=== PATIENT | female | born 1945 | race Caucasian/White ===

== ENCOUNTER 2018-12-02 12:23 | Observation (INO) ==
[2018-12-02 13:59] LABS: BASO# 0.04 X1000 (0.0-0.2); BASO% 0.8 % (0.0-0.8); EOS# 0.12 X1000 (0.0-0.7); EOS% 2.5 % (0.0-10.0); HEMATOCRIT 38.4 % (37.0-47.0); HEMOGLOBIN 12.8 g/dL (12.0-16.0); IMM GRAN# 0.01 X1000 (0.0-0.04); IMM GRAN% 0.2 % (0.0-0.5); LYMPH# 1.65 X1000 (1.2-3.4); LYMPH% 33.9 % (20.5-51.1); MCH 30.9 PG (27-31); MCHC 33.3 g/dL (33-37); MCV 92.8 FL (81-99); MONO# 0.32 X1000 (0.11-0.59); MONO% 6.6 % (1.7-9.3); MPV 10.9 FL (7.4-10.4); NEUT# 2.73 X1000 (1.4-6.5); PLT 215 X1000 (130-400); RBC 4.14 XMIL (4.2-5.4); RDW 12.9 % (11.5-14.5); WBC 4.87 X1000 (4.8-10.8)
[2018-12-02 14:19] LABS: ALBUMIN 4.4 g/dL (3.5-5.0); CALCIUM 9.2 mg/dL (8.8-10.2); CREATININE 3.7 mg/dL (0.5-0.9); POTASSIUM 4.1 mmol/L (3.5-5.1); TOTAL BILIRUBIN 0.9 mg/dL (0.20-1.00); TOTAL PROTEIN 7.7 g/dL (6.3-8.3)
[2018-12-02 14:32] LABS: INR 1.01; PROTIME 13.8 Seconds (11.0-16.0); PTT 25.1 Seconds (22.3-41.8)
--- NOTE | 2018-12-02 15:14 | Diag Imaging Result Doc PS360 ---
EXAM: CHEST-2 VIEWS - 12/02/2018 HISTORY: weakness/ams TECHNIQUE: Chest two views COMPARISON: 12/10/2017 FINDINGS: Heart size appears borderline enlarged and stable. There are a couple small granulomas from old granulomatous disease which are stable. There is a small artifact over the lateral mid right chest on the PA view, which is not identifiable on lateral view. The lungs otherwise appear clear. There is no pleural effusion or pneumothorax identified. There is an old mid thoracic vertebral body compression deformity noted similar to prior. There are postsurgical changes noted at the right shoulder. IMPRESSION: Stable borderline cardiomegaly. No evidence of acute disease. Electronically signed by Pee Stone 12/02/2018 3:12 PM
--- NOTE | 2018-12-02 15:19 | Diag Imaging Result Doc PS360 ---
EXAM: CT HEAD W/O CONTRAST - 12/02/2018 HISTORY: AMS TECHNIQUE: CT head without contrast COMPARISON: 10/09/2014 FINDINGS: There are minimal chronic microvascular ischemic changes. There is no evidence of recent infarct, although acute infarcts may not be immediately visible. There are atherosclerotic calcifications noted at the base the brain. There is no evidence of intracranial hemorrhage, mass effect, midline shift, or hydrocephalus. There is no evidence of skull fracture. IMPRESSION: No visible acute intracranial abnormality. No hemorrhage or mass effect. This exam was performed using automated exposure control, adjustment of mA or kV according to patient size, and/or use of iterative reconstruction technique. Electronically signed by Pee Stone 12/02/2018 3:17 PM
--- NOTE | 2018-12-02 15:27 | EKG Report ---
Test Performed on : 12/02/2018 1:03:03 PM Test Reason : weakness/ams Blood Pressure : / mmHG Vent. Rate : 107 BPM Atrial Rate : 107 BPM P-R Int : 166 ms QRS Dur : 074 ms QT Int : 344 ms P-R-T Axes : 056 -38 033 degrees QTc Int : 459 ms Sinus tachycardia. Left axis deviation Inferior infarct , age undetermined Anteroseptal infarct (cited on or before 10-DEC-2017) Abnormal ECG When compared with ECG of 10-DEC-2017 00:29, premature atrial complexes. are no longer present Questionable change in initial forces of Anteroseptal leads Unconfirmed Result
[2018-12-02] MEDS ORDERED: ULTRAM PO ONE (16:26)
--- NOTE | 2018-12-02 16:56 | PROVIDER DOCUMENTATION ---
This chart was entered by Kendra Valdes Scribe, acting as scribe for Madi Blackwell MD. HPI-General Adult - General Chief Complaint: Altered Mental Status Stated Complaint: ams Time Seen by Provider: 12/02/18 14:03 Source: patient, family Allergies/Adverse Reactions: Patient Allergies Allergy/AdvReac Type Severity Reaction Status Date / Time aspirin AdvReac Unknown Verified 12/02/18 13:15 D and C yellow no.10 AdvReac VOMITING Verified 12/02/18 13:15 [D & C no.10 (yellow)] Home Medications: Home Medication List Medication Instructions Recorded Confirmed Last Taken Type Amitriptyline [Elavil] 25 mg PO HS 09/28/14 07/27/15 09/28/14 History Clonazepam 0.5 mg PO HS 09/28/14 07/27/15 09/28/14 History Furosemide 40 mg PO DAILY 09/28/14 07/27/15 11/12/14 History Gabapentin 300 mg PO TID 09/28/14 07/27/15 11/12/14 History ROSUVAstatin [Crestor] 10 mg PO QHS 09/28/14 07/27/15 11/11/14 History Insulin NPL/Insulin Lispro 40 units SUBQ BID 10/09/14 07/27/15 11/11/14 History [Humalog Mix 75-25 Pen] Losartan/Hydrochlorothiazide 100 mg PO DAILY 11/12/14 07/27/15 11/12/14 History [Losartan-Hctz 100-25 mg Tab] Ondansetron [Zofran Odt] 4 mg PO Q4-6H PRN PRN #12 12/14/14 07/27/15 Unknown Rx tab.rapdis Amlodipine Besylate 10 mg PO DAILY 01/20/15 07/27/15 Unknown History Hydrocodone/APAP 10 mg/325 mg 1 tab PO TID 01/20/15 07/27/15 Unknown History [Weimar-10] Omeprazole 1 tab PO DAILY 01/20/15 07/27/15 Unknown History Ciprofloxacin HCl [Cipro] 500 mg PO BID #14 tablet 07/27/15 Unknown Rx Clonidine [Catapres] 0.1 mg PO BID PRN PRN #60 tablet 07/27/15 Unknown Rx Tizanidine [Zanaflex] 4 mg PO Q8HR PRN 07/27/15 07/27/15 Unknown History Cephalexin [Keflex] 500 mg PO TID #30 capsule 06/13/17 Unknown Rx Fluconazole [Diflucan] 150 mg PO DAILY #5 tablet 06/13/17 Unknown Rx Cephalexin [Keflex] 500 mg PO BID #14 cap 09/28/17 Unknown Rx Guaifenesin/Codeine [Robitussin-AC] 10 ml PO Q4H PRN PRN #6 oz 09/28/17 Unknown Rx Diphenoxylate/Atropine [Lomotil] 1 ea PO 4XDAY PRN PRN #20 tab 12/10/17 Unknown Rx Ondansetron [Zofran Odt] 8 mg PO Q8H PRN #20 tab.rapdis 12/10/17 Unknown Rx Hydrocodone/APAP 5 mg/325 mg 1 ea PO Q6H PRN PRN #10 tab 09/01/18 Unknown Rx [Weimar-5] Methocarbamol [Robaxin] 500 mg PO BID PRN #30 tab 09/01/18 Unknown Rx - History of Present Illness -Gen Adult Nature of Presenting Problems: 73 yof presents w/family to ed w/co body weakness, confusion. pt is aware of person and place but not time. pt is post op 2 months w/left arm shunt. pt will be getting new shunt to start dialysis. pt has hx of right shoulder fracture. Review of Systems - Adult - REVIEW OF SYSTEMS - ADULT Constitutional: reports: see HPI, other (body weakness). denies: chills, fever , fatique Eyes: reports: no symptoms reported Ears, Nose, Mouth & Throat: reports: no symptoms reported Cardiovascular: reports: no symptoms reported Respiratory: reports: no symptoms reported Gastrointestinal: reports: no symptoms reported Genitourinary: reports: no symptoms reported Musculoskeletal: reports: no symptoms reported Integumentary: reports: no symptoms reported Neurological: reports: see HPI, other (confusion). denies: dizziness/vertigo, headache/migraines, syncope, tremors Psychiatric: reports: no symptoms reported Endocrine: reports: no symptoms reported Hematologic/Lymphatic: reports: no symptoms reported Allergic/Immunologic: reports: no symptoms reported All Other Systems: Reviewed and Negative Past History - Adult - PAST MEDICAL HISTORY-ADULT Review of Records: reports: Old Records Reviewed, Nursing Assessment Review, Medications Reviewed, Social history reviewed & non-contributory. Major Childhood Illnesses: reports: denies history Cardiovascular: reports: CHF, HTN, hyperlipidemia Respiratory: reports: bronchitis, COPD Gastrointestinal: reports: GERD Obstetrical/Gynecological: reports: denies history Genitourinary: reports: kidney disease Musculoskeletal: reports: chronic pain Neurological: reports: headaches/migraines (remote history) Psychiatric: reports: anxiety, depression Endocrine/Immune: reports: Diabetes Other Conditions: reports: denies history - PRIOR SURGERIES/PROCEDURES Surgical/Procedure History: reports: BTL, other (rt shoulder skin cancer removed , shunt left arm) - IMMUNIZATION STATUS Childhood Immunizations: UTD Flu Vaccine: See Nurse Assessment - FAMILY HISTORY Family History: reviewed, not pertinent - SOCIAL HISTORY Smoking: other (former) Substance Use: none/never Physical Exam-General - PHYSICAL EXAM-ADULT Initial Vital Signs Reviewed: Yes - CONSTITUTIONAL General Appearance: appears well, alert, no apparent distress - EYES Eyes: PERRL/EOMI - HEAD, EARS, NOSE, MOUTH & THROAT HENMT: normocephalic/atraumatic, moist mucous membranes, normal ENT inspection - NECK Neck: non-tender, full range of motion, supple - RESPIRATORY Respiratory: chest non-tender, lungs clear, normal breath sounds - CARDIOVASCULAR Cardiovascular: no edema, no gallop, no JVD, no murmur, tachycardia. negative: regular rate, rhythm, diastolic murmur, systolic murmur - GASTROINTESTINAL (ABDOMEN) Abdominal Exam: normal bowel sounds, non tender, soft - LYMPHATIC Lymphatic: no adenopathy - MUSCULOSKELETAL Back Exam: normal inspection, no CVA tenderness, no vertebral tenderness Extremity: normal range of motion, non-tender, normal inspection - SKIN Integumentary: normal color, normal turgor, warm/dry - NEUROLOGIC Neurologic: mental health counselor II-XII nml as tested, grossly normal, no motor/sensory deficits - PSYCHIATRIC Psych/Mental Status: normal mood/affect, normal thought content, normal thought process, oriented x 3 Progress - PLAN OF CARE/RESULTS Progress/Plan/Lab Results: Vital Signs - 8 hr 12/02/18 13:09 12/02/18 13:16 Temperature 98.4 F Pulse Rate 107 H Respiratory Rate 13 Blood Pressure 167/78 O2 Sat by Pulse Oximetry 100 Laboratory Results - last 24 hr 12/02/18 12/02/18 12/02/18 13:07 13:30 13:30 WBC 4.87 RBC 4.14 L Hgb 12.8 Hct 38.4 MCV 92.8 MCH 30.9 MCHC 33.3 RDW Std Deviation 12.9 Plt Count 215 MPV 10.9 H Immature Gran % (Auto) 0.2 Neut % (Auto) 56.0 Lymph % (Auto) 33.9 Roberts % (Auto) 6.6 Eos % (Auto) 2.5 Baso % (Auto) 0.8 Immature Gran # (Auto) 0.01 Neut # (Auto) 2.73 Lymph # (Auto) 1.65 Roberts # (Auto) 0.32 Eos # (Auto) 0.12 Baso # (Auto) 0.04 Estimated GFR/1.73 m2 12 POC Glucose 168 H Troponin T 12/02/18 13:30 WBC RBC Hgb Hct MCV MCH MCHC RDW Std Deviation Plt Count MPV Immature Gran % (Auto) Neut % (Auto) Lymph % (Auto) Roberts % (Auto) Eos % (Auto) Baso % (Auto) Immature Gran # (Auto) Neut # (Auto) Lymph # (Auto) Roberts # (Auto) Eos # (Auto) Baso # (Auto) Estimated GFR/1.73 m2 POC Glucose Troponin T 0.021 Orders Category Date Time Status Cardiac Monitoring DIRECTED Care 12/02/18 13:46 Active Saline Loc NOW Care 12/02/18 13:46 Active CHEST-2 VIEWS [RAD] Stat Exams 12/02/18 13:46 Ordered CBC WITH ELECTRONIC DIFF [HEME] Stat Lab 12/02/18 13:30 Completed CK PROFILE [SP CHEM] Stat Lab 12/02/18 13:30 Results COMPREHENSIVE METABOLIC PANEL [CHEM] Stat Lab 12/02/18 13:30 Results PRO B-NATRIURETIC PEPTIDE Stat Lab 12/02/18 13:30 Received PROTIME WITH INR [COAG] Stat Lab 12/02/18 13:30 Received PTT [COAG] Stat Lab 12/02/18 13:30 Received TROPONIN T Stat Lab 12/02/18 13:30 Completed CP/SOB/Palp >45 yrs of Age Stat Oth 12/02/18 13:46 Ordered EKG [EKG] Stat Ther 12/02/18 13:46 Ordered Result Diagrams: 12/02/18 13:30 12/02/18 13:30 - EKG 1 Time of EKG reading by physician:: 12:19 EKG Read and Signed by:: Madi Blackwell EKG Interpretation (*Must complete 3 of following elements*): Abnormal (left axis deviation, inferior infract, age undetermined, anterospetal infract, age undetermined.) Rate: 107 Rhythm: ST RI Interval: normal ST Wave: normal Departure - Departure Date of Disposition Decision: 12/02/18 Time of Disposition Decision: 16:50 DIAGNOSIS: Altered mental status, Weak, CKD (chronic kidney disease) stage 4, GFR 15-29 ml /min Disposition: ADMITTED INPATIENT 09 Certified Medical Emergency: Emergent Condition: Stable Referrals and Follow-Ups: Wilfredo Cornejo MD [Primary Care Provider] - - Critical Care Note This patient required my direct & personal management of CC.: No Attestation - Physician/ MEG Attestation Patient care was provided by Advanced Practice Provider:: No The physician spent face to face time with patient:: Yes Advanced Practice Provider documentation review:: Supervising physician onsite and consulted in the evaluation and care of this patient. The physician did have a face to face encounter with the patient. This chart was documented by the indicated scribe, (Kendra Valdes, [place]) and accurately reflects the services I performed and decisions made by me, Madi Blackwell MD, as attested by the provider's signature.
[2018-12-02] MEDS ORDERED: NORCO-5 PO ONE (17:34)
[2018-12-02] MEDS ORDERED: ZOFRAN IV PRN ×2 (17:35→17:42)
[2018-12-02] MEDS ORDERED: NS 1,000 ML IV ONE (17:42)
[2018-12-02] MEDS ORDERED: MORPHINE IV ONE (17:42)
[2018-12-02] MEDS ORDERED: TYLENOL PO PRN (17:42)
[2018-12-02 18:28] LABS: URINE SOURCE CATH
[2018-12-02 18:45] LABS: BILIRUBIN URINE NEGATIVE (NEGATIVE); BLOOD URINE NEGATIVE (NEGATIVE); CLARITY CLEAR (CLEAR); COLOR YELLOW; GLUCOSE URINE NEGATIVE (NEGATIVE); KETONE URINE 1+(Small) mg/dL (NEGATIVE); LEUKOCYTES URINE NEGATIVE (NEGATIVE); NITRITE URINE NEGATIVE (NEGATIVE); PROTEIN URINE TRACE mg/dL (NEGATIVE); UROBILINOGEN URINE NORMAL
--- NOTE | 2018-12-02 18:56 | HISTORY AND PHYSICAL ---
CHIEF COMPLAINT: Left arm pain. HISTORY OF PRESENT ILLNESS: This is a 73-year-old female with a history of end-stage renal disease, insulin-dependent diabetic, hypertension, who presents to the emergency room complaining of increasing pain and decreased sensation to her left arm. She states that this started shortly after having an AV fistula placed. Now on talking to the family, they stated that she cried herself to sleep last night. The patient states that she passed out. She could tell me what time she passed out and what time she woke up this morning. The family member stated that she was weaker than normal, a little confused therefore she presented to the emergency room. The patient states that she has not voided all day and the son actually does not remember helping her all day and in fact, she does not remember when she voided yesterday. She denies any suprapubic tenderness. Bladder is not distended. PAST MEDICAL HISTORY: End-stage renal disease, being followed by Dr. Barrett, insulin-dependent diabetes mellitus, hypertension, depression, anxiety. PAST SURGICAL HISTORY: Hysterectomy, right shoulder, skin cancer removal, and AV graft left arm. SOCIAL HISTORY: She denies any alcohol, tobacco, or illicit drug use. She lives with her children who are very active in her care. ALLERGIES: Aspirin with unknown reaction, D and C #10 yellow causes vomiting. HOME MEDICATIONS: A list will be obtained by the nursing staff and once verified, will review and restart as appropriate. PHYSICAL EXAMINATION: GENERAL: This is a 73-year-old female who is lying flat on the stretcher in the ER in mild distress. VITAL SIGNS: Blood pressure is 150/70 with a heart rate of 100, respirations are 18, temperature is 98.4 degrees. Room air saturation 100%. HEENT: Head is normocephalic, atraumatic. Mucous membranes are moist. NECK: Supple with trachea midline. CARDIOVASCULAR: Regular rate and rhythm. S1 and S2 appreciated. She has no lower extremity edema with peripheral pulses palpable x4 extremities. PULMONARY: Breath sounds are clear with no increased work of breathing noted. Chest rises and falls symmetrically with respiration. GASTROINTESTINAL: Abdomen is soft, nontender, nondistended. Bowel sounds in all 4 quadrants. GENITOURINARY: She denies any suprapubic or CVAT. NEUROLOGIC: She is alert. She is oriented to family members, her name and birthday. She knows that she is at [facility]. She has difficulty telling the date. She does follow commands. Forehead is spared. She has no nasal flaring. No tongue or uvula deviation. She has equal shoulder shrug. She has no plantar drift. Sample Sawyer are 4/4 bilateral. Muscle strength is 3 to 4 x 4 extremities. LABORATORY DATA: WBC is 4.8 with a hemoglobin 12.8, hematocrit 38.4, platelets of 215,000. Sodium 142, potassium 4.1, BUN 69 with a creatinine 3.7, glucose of 162. CT of the head revealed no acute intracranial abnormality. No hemorrhage or mass effect. Chest x-ray revealed stable borderline cardiomegaly. No evidence of acute disease. EKG revealed sinus tachycardia, rate of 107. ASSESSMENT AND PLAN: 1. Left arm pain and decreased sensation. We will obtain a venous Doppler as she did have a shunt placed. Do neurovascular checks every 4 hours. We will consult General surgery to re- evaluate. 2. Altered mental status. Neuro checks q.4 hours for 24 hours. She has not urinated in about 24 hours, so there could be an infectious component. 3. End-stage renal disease. She is being followed by Dr. Barrett. We will consult him for medical management. 4. Insulin-dependent diabetes. She will be placed on patterned blood glucose with sliding scale insulin. Once she is eating, we can evaluate her home medications and long-acting insulins. 5. For pain, we will continue her Dowell 5 as well as her Neurontin. Further treatments pending hospital course. Dictated by ROSHNI Mauro for Wilfredo Cornejo MD This chart was documented by, ROSHNI Mauro and accurately reflects the services performed, treatment plan and medical decisions as attested by the providers signature Wilfredo Cornejo MD. cc: ROSHNI Mauro MD
[2018-12-02 19:10] LABS: URINE BACTERIA 1+ /HFP; URINE CAST NONE SEEN /LPF; URINE CRYSTAL NONE SEEN /HPF; URINE EPITHELIAL CELLS <10 /HPF (<10); URINE RBC <10 /HPF (<10); URINE WBC <10 /HPF (<10); URINE YEAST NONE SEEN /HPF
[2018-12-02] MEDS: HUMALOG SUBQ SCH (21:24)
[2018-12-02] MEDS: ROBAXIN PO SCH (21:26)
[2018-12-02] MEDS ORDERED: MORPHINE IV PRN (21:52)
[2018-12-02] MEDS: NORCO-7.5 PO PRN (22:51)
--- NOTE | 2018-12-03 06:24 | NEPHROLOGY CONSULTATION ---
DATE: 12/03/2018 REASON FOR CONSULTATION: Left hand steal syndrome. HISTORY OF PRESENT ILLNESS: Ms Lemus is a 73-year-old white female with advanced stage 5 chronic kidney disease. She had a left forearm AV loop graft created by Dr. Mathis within the last 2 weeks in anticipation of requiring hemodialysis. She was seen in our office earlier in the week because of severe pain in the left arm. She also had multiple uremic symptoms. Our plan was for her to go to [facility] and have an arteriogram as well as placement of a tunneled dialysis catheter in order to initiate dialysis, if that was necessary. She came to the hospital because of intractable pain, limited range of motion. No chills or fevers. No other new symptoms. PAST MEDICAL HISTORY: As above. She also has diabetes, hypertension. HOME MEDICATIONS: Include. Rosuvastatin, furosemide, losartan, hydrochlorothiazide, amlodipine, Lomotil, ondansetron, hydrocodone, gabapentin, insulin, meloxicam, Promethazine, ergocalciferol, pantoprazole, methocarbamol. ALLERGIES: Aspirin. SOCIAL HISTORY: No alcohol or tobacco. She lives with her daughter. FAMILY HISTORY: Otherwise noncontributory. REVIEW OF SYSTEMS: Otherwise noncontributory. PHYSICAL EXAM: Limited to the upper extremity. Vital signs: Blood pressure 126/71, heart rate 95, respirations 14, afebrile. General: No acute distress. Skin: Warm and dry. Neck: Neck veins are not distended. Trachea is midline. Extremity: Left upper extremity has an AV loop graft in the left forearm. Positive thrill and bruit. The graft itself is nontender. There is a small eschar at the counter incision on the distal into the graft. The left hand has marked pallor and decreased range of motion. Passive range of motion results in some pain with flexion. Radial pulses not palpable on the left. Palpable on the right. Capillary refill is normal on the right and undetectable on the left. 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 Her pain control is better having received morphine. I will allow her to have further doses through the night, but the best evaluation of this graft will be performed at [facility] in [place]. As such, if she has adequate pain control in the morning she is to be discharged, and we will make arrangements for her to be seen in [facility]. If she does require additional dialysis access in order to initiate treatment then we will have them take care of this problem as well. cc: Simone Barrett MD
[2018-12-03] MEDS: HUMALOG SUBQ SCH ×2 (06:28→12:10)
[2018-12-03] MEDS: NORCO-7.5 PO PRN ×2 (06:47→13:11)
[2018-12-03 06:50] LABS: BASO# 0.04 X1000 (0.0-0.2); BASO% 0.8 % (0.0-0.8); EOS# 0.23 X1000 (0.0-0.7); EOS% 4.7 % (0.0-10.0); HEMATOCRIT 36.3 % (37.0-47.0); HEMOGLOBIN 11.6 g/dL (12.0-16.0); LYMPH# 1.94 X1000 (1.2-3.4); LYMPH% 39.8 % (20.5-51.1); MCH 30.4 PG (27-31); MONO# 0.53 X1000 (0.11-0.59); MONO% 10.9 % (1.7-9.3); NEUT# 2.13 X1000 (1.4-6.5); NEUT% 43.8 % (42.2-75.2); PLT 186 X1000 (130-400); RBC 3.82 XMIL (4.2-5.4); RDW 12.9 % (11.5-14.5); WBC 4.87 X1000 (4.8-10.8)
[2018-12-03] MEDS ORDERED: PRILOSEC PO SCH (07:00)
[2018-12-03 07:13] LABS: ALB/GLOB RATIO 1.2; ALBUMIN 3.8 g/dL (3.5-5.0); CREATININE 4.4 mg/dL (0.5-0.9); MAGNESIUM 1.7 mg/dL (1.5-2.7); POTASSIUM 4.2 mmol/L (3.5-5.1); TOTAL BILIRUBIN 0.53 mg/dL (0.20-1.00); TOTAL PROTEIN 6.9 g/dL (6.3-8.3)
[2018-12-03] MEDS: ROBAXIN PO SCH (09:36)
[2018-12-03 11:27] VITALS: BP 136/50
--- NOTE | 2018-12-03 15:01 | GENERAL SURGERY CONSULTATION ---
DATE: 12/03/2018 HISTORY OF PRESENT ILLNESS: Ms. Lemus is a 73-year-old who came to the emergency department yesterday with somewhat of an altered mental status. She complains of body weakness and confusion, not oriented to place or time. She complains of left hand pain. She is 2 months after placement of a left forearm AV graft by Dr. Mathis in [place]. She is scheduled Friday to go to [place] for a tunnel catheter and some type of ligation or revision of her left forearm graft. PAST MEDICAL HISTORY: Pertinent for insulin-dependent diabetes, hypertension, depression, anxiety, CKD 5. He has had previous shoulder surgery, hysterectomy, skin cancer removal, and the forearm AV graft. MEDICATIONS: Listed. She apparently cannot take aspirin. SOCIAL HISTORY: She denies alcohol, tobacco or drug use. She has an attentive son at her bedside. REVIEW OF SYSTEMS: As noted above. PHYSICAL EXAMINATION: Vital signs: Afebrile, heart rate 80, respiratory rate 16, blood pressure 136/50. Lungs: Bilateral breath sounds. Heart: Regular rate and rhythm. Extremities: Forearm shunt is noted on the left. There is flow within the forearm graft. She does have a faintly palpable radial pulse. Her hand is viable. LABORATORY DATA: Hemoglobin 11.6, white count 4800, BUN 82, creatinine 4.4. ASSESSMENT: Functional graft but apparently there is plan to revise it or switch to another access in [place] on Friday. I have no new recommendations. cc: Madi Park MD
--- NOTE | 2018-12-03 15:33 | NEPHROLOGY PROGRESS NOTE ---
DATE: 12/03/2018 TIME SEEN: 0705 SUBJECTIVE: Ms. Lemus is resting quietly in bed. Head of the bed is elevated. She is awake and alert today. She has complaints of left arm pain and left hand pain. VITAL SIGNS: Temperature 98.2 degrees, blood pressure 126/71, heart rate 95, respirations 14. She is on room air. Last recorded saturation is 97%. She has had 500 in. She has had 1050 out to Centeno catheter. LABORATORY DATA: Sodium 142, potassium 4.2, chloride 96, CO2 33, BUN 82, creatinine 4.4, glucose 179. The patient has an anion gap of 13. Calcium is 9, albumin of 3.8. White count 4.87, hemoglobin 11.6, hematocrit 36.3 with a platelet count of 186,000. Urinalysis is negative for growth. PHYSICAL EXAMINATION: General: This is a 73-year-old white female resting quietly in bed. She appears in moderate distress secondary to pain to her left forearm. Her skin is warm and dry. HEENT: Normocephalic, atraumatic. Conjunctivae pale. She has SRI. Mucous membranes are dry. Neck: Supple. Trachea midline. No JVD. Cardiovascular: She is regular rate and rhythm. She has an S4 present. Lungs: Clear to auscultation anteriorly. Equal excursion on room air. Abdomen: Slightly distended, large, round, soft, nontender. Positive bowel sounds. Genitourinary: Centeno catheter is in place. Extremities: She has no lower extremity edema. She has an AV loop graft to the left forearm. Her hand is dusky. She has marked pallor with decreased range of motion. Passive range of motion results in pain with flexion at the elbow. Radial pulse remains distant, nonpalpable. Pulse is palpable on the right. Capillary refill normal on the right, undetectable on the left. ASSESSMENT AND PLAN: Chronic kidney disease stage 5D. The patient has an arteriovenous loop graft to the left forearm. She has had significant pain since this has been placed. We have attempted to get the patient to [facility] for placement of hemodialysis tunnel catheter with evaluation of this loop graft and her significant steal syndrome pain. Unfortunately, the patient was seen in our office on Friday due to her insurance. We have contacted her primary care. They have sent the referral to [facility] in [place]. We have a confirmed appointment on Friday. We will fax this to the nurses station to give to the patient for discharge. The patient is currently on [place]. Her pain seems to be controlled adequately. From our perspective, the patient is ready for discharge to go to [facility] in [place] on Friday for workup on her tunnel dialysis catheter and evaluation of her left arteriovascular graft on the left. At that time, once placed, we will plan to start the patient on hemodialysis next week. I would like to thank you for allowing us to follow with this patient. Dictated by ROSHNI Viveros for Simone Barrett MD Face to face encounter, data reviewed, discussed with Cheko Camacho on 12/03/18. I agree with the above assessment and plan of care. cc: ROSHNI Viveros MD [facility]
--- NOTE | 2018-12-04 07:12 | DISCHARGE SUMMARY ---
ADMISSION DATE: 12/02/2018 DISCHARGE DATE: 12/03/2018 DISCHARGE DIAGNOSES: 1. 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 2. Altered mental status, resolved. 3. End-stage renal disease on hemodialysis. 4. Type 2 diabetes. CONSULTATIONS: Surgery Department Dr. Park. NEPHROLOGY DEPARTMENT: Dr. Barrett. HOSPITAL COURSE: A 73-year-old female with a past medical history of end-stage renal disease, insulin-dependent diabetes, and hypertension who presented to the emergency department at [facility] with increasing pain and decreased sensation to the left arm. Per the patient, this problem started shortly after having an AV fistula placed. She described the pain as severe. Apparently, she has been weaker than normal, and a little bit confused so they decided to come to the emergency department. Nephrology Department evaluated the patient, and since this patient has left hand steal syndrome secondary to the AV loop graft we have decided to control her pain. The best evaluation for this graft will be performed at [facility] in [place]. The patient [*]with pain medication, and today she was feeling a little bit better. Nephrology Department already set up an appointment for this patient [place], [place]. She has an appointment next Friday at 11:30 in the morning. We received some informational fax from that place, and we gave it to the patient. They seem to understand. Her son was at the bedside, and all of the situation was explained to him as well. The patient also has been evaluated by Surgery Department, but since this problem will be hopefully fixed by [facility] in [place], they have decided to just keep an eye on the patient. This patient will be discharged home today with pain medication. PHYSICAL EXAMINATION: Vital Signs: Temperature 98 degrees, pulse 80, respiratory rate 16, blood pressure 136/50 and oxygen saturation 95% on room air. HEENT: Head normocephalic. No trauma. PERRLA. Neck: Supple. No JVD. No masses. Central trachea. Chest: Clear to auscultation. No wheezing. No rales. Abdomen: Soft, nontender, and nondistended. No hepatosplenomegaly. Extremities: No edema. Her left arm is a little bit cold, and is sensitive to palpation. She is able to move her hand but is painful. Neurological: Today, this patient is alert and oriented x3. No focal deficits, but some weakness on the left hand probably due to pain. LABORATORY: WBC 4.8, hemoglobin 11.6, hematocrit 36.3, and platelets 186,000. Sodium 142, potassium 4.2, chloride 96, bicarbonate 33, BUN 82, creatinine 4.4, glucose 179 and calcium 9. Magnesium 1.7. DISCHARGE MEDICATIONS: The patient basically will be taking her home medications which are furosemide 40 mg p.o. b.i.d., gabapentin 300 mg p.o. b.i.d., Phenergan 1 tablet p.o. q.4 hours as needed, insulin 75/25 70 units subcu b.i.d., pantoprazole 1 tablet p.o. daily, ezetimibe 10 mg p.o. daily, Losartan/hydrochlorothiazide 100/25 mg p.o. daily, meloxicam 1 tablet p.o. daily, vitamin D2 1 capsule p.o. q.7 days, Crestor 10 mg p.o. at bedtime, Robaxin 500 mg p.o. b.i.d., ondansetron 8 mg p.o. q.8 hours as needed, Lomotil one tablet p.o. 4 times a day as needed, amlodipine 10 mg p.o. daily, and Kathleen 7.5 1 tablet p.o. every 6 hours as needed for pain. TIME SPENT: Time discharging this patient 35 minutes. cc: Taran Traore MD
== END 2018-12-03 13:44 | disposition home or self-care (01) ==
LOC: 4N 12:23 → EDBD 12:23 → EDUNIT# 12:23 → P.ED 12:23
PROVIDERS: ATTEND Internal Medicine
CPT/HCPCS: 51702; 70450; 71020; 71046; 80053; 81001; 82550; 82948; 83735; 83880; 84484; 85025; 85610; 85730; 87088; 93005; 93971; 93990; 96361; 96374; 96375; 99285; A9270; J1815; J2270; J2405; J7030; XXXXX

== ENCOUNTER 2019-05-26 19:51 | Inpatient (IN) ==
[2019-05-26 22:19] LABS: BILIRUBIN URINE NEGATIVE (NEGATIVE); BLOOD URINE NEGATIVE (NEGATIVE); CLARITY CLEAR (CLEAR); COLOR YELLOW; GLUCOSE URINE NEGATIVE (NEGATIVE); KETONE URINE NEGATIVE (NEGATIVE); LEUKOCYTES URINE 1+ (NEGATIVE); NITRITE URINE NEGATIVE (NEGATIVE); PROTEIN URINE 1+(30 mg/dL) mg/dL (NEGATIVE); SP GRAVITY URINE 1.015; UROBILINOGEN URINE NORMAL
[2019-05-26 22:29] LABS: URINE EPITHELIAL CELLS <10 /HPF (<10); URINE RBC <10 /HPF (<10); URINE WBC <10 /HPF (<10)
[2019-05-26 22:30] LABS: URINE CAST NONE SEEN /LPF; URINE CRYSTAL NONE SEEN /HPF; URINE SOURCE CLEAN CATCH; URINE YEAST NONE SEEN /HPF
[2019-05-26 22:38] LABS: BASO# 0.02 X1000 (0.0-0.2); BASO% 0.4 % (0.0-0.8); EOS# 0.02 X1000 (0.0-0.7); EOS% 0.4 % (0.0-10.0); HEMOGLOBIN 12.1 g/dL (12.0-16.0); IMM GRAN# 0.02 X1000 (0.0-0.04); IMM GRAN% 0.4 % (0.0-0.5); LYMPH# 1.05 X1000 (1.2-3.4); LYMPH% 19.4 % (20.5-51.1); MCH 31.8 PG (27-31); MCHC 33.6 g/dL (33-37); MCV 94.7 FL (81-99); MONO# 0.62 X1000 (0.11-0.59); MONO% 11.5 % (1.7-9.3); MPV 13.2 FL (7.4-10.4); NEUT# 3.67 X1000 (1.4-6.5); NEUT% 67.9 % (42.2-75.2); PLT 84 X1000 (130-400)
[2019-05-26 22:57] LABS: CALCIUM 8.3 mg/dL (8.8-10.2); CREATININE 4.5 mg/dL (0.5-0.9); POTASSIUM 3.9 mmol/L (3.5-5.1); TOTAL BILIRUBIN 0.6 mg/dL (0.20-1.00)
[2019-05-26 22:58] LABS: TOTAL PROTEIN 7.1 g/dL (6.3-8.3)
[2019-05-27] MEDS ORDERED: NS 250 ML IV ONE (03:54)
--- NOTE | 2019-05-27 06:46 | PROVIDER DOCUMENTATION ---
This chart was entered by Drake Claire Scribe, acting as scribe for Ray Young MD. HPI-Abdominal Pain/GI Problem - General Chief Complaint: N/V/D Stated Complaint: N/V/D Time Seen by Provider: 05/26/19 22:00 Source: patient Allergies/Adverse Reactions: Patient Allergies Allergy/AdvReac Type Severity Reaction Status Date / Time aspirin AdvReac Unknown Verified 12/29/18 08:17 D and C yellow no.10 AdvReac VOMITING Verified 12/29/18 08:17 [D & C no.10 (yellow)] Home Medications: Home Medication List Medication Instructions Recorded Confirmed Last Taken Type Furosemide 40 mg PO BID 09/28/14 12/29/18 11/12/14 History ROSUVAstatin [Crestor] 10 mg PO QHS 09/28/14 12/29/18 11/11/14 History Losartan/Hydrochlorothiazide 1 tab PO DAILY 11/12/14 12/29/18 11/12/14 History [Losartan-Hctz 100-25 mg Tab] Amlodipine Besylate 10 mg PO DAILY 01/20/15 12/29/18 Unknown History Diphenoxylate/Atropine [Lomotil] 1 ea PO 4XDAY PRN PRN #20 tab 12/10/17 12/29/18 Unknown Rx Ondansetron [Zofran Odt] 8 mg PO Q8H PRN #20 tab.rapdis 12/10/17 12/29/18 Unknown Rx Ergocalciferol (Vitamin D2) 1 cap PO Q7D 12/02/18 12/29/18 Unknown History [Vitamin D2] Gabapentin 300 mg PO BID 12/02/18 12/29/18 Unknown History Insulin Humalog 75/25 [Humalog Mix 70 unit SQ BID 12/02/18 12/29/18 Unknown History 75/25] Meloxicam [Mobic] 1 tab PO DAILY 12/02/18 12/29/18 Unknown History Methocarbamol [Robaxin] 500 mg PO BID 12/02/18 12/29/18 Unknown History Pantoprazole [Protonix] 1 tab PO DAILY 12/02/18 12/29/18 Unknown History Promethazine [Phenergan] 1 tab PO Q4H PRN 12/02/18 12/29/18 Unknown History Hydrocodone/APAP 7.5 mg/325 mg 1 ea PO Q6H PRN PRN #30 tab 12/03/18 12/29/18 Unknown Rx [Stuart-7.5] - History of Present Illness-ABD Nature of Presenting Problems: Pt is a 74 yof who presents to the ED with a CC of N/V/D. Pt states she has been vomiting for 2x days and also complains of cramping, nausea, and diarrhea. Pt reports a hx of renal failure and states she is on dialysis. Pt states she missed her dialysis appointment today because she felt sick. Pt reports a total of 9 vomiting episodes in the past two days. Pt reports a hx of diabetes. Abdominal Pain Onset Location: reports: generalized abdomen Pain Radiation: reports: no radiation Quality of Pain: reports: burning, cramping Severity in ED: reports: mild Onset/Duration: reports: 2 days ago Timing: reports: still present Exposure to sick contacts?: No Associated Symptoms: reports: diarrhea, nausea, vomiting Last BM: this evening # of Vomiting Episodes: 9 Bruising or Bleeding Gums?: No Similar Symptoms Previously?: No Recently seen or treated by another doctor?: No Review of Systems - Adult - REVIEW OF SYSTEMS - ADULT Constitutional: reports: see HPI Eyes: reports: no symptoms reported Ears, Nose, Mouth & Throat: reports: no symptoms reported Cardiovascular: reports: no symptoms reported Respiratory: reports: no symptoms reported Gastrointestinal: reports: see HPI, abdominal pain, diarrhea, nausea, vomiting Genitourinary: reports: no symptoms reported Musculoskeletal: reports: no symptoms reported Integumentary: reports: no symptoms reported Neurological: reports: no symptoms reported Psychiatric: reports: no symptoms reported Endocrine: reports: no symptoms reported Hematologic/Lymphatic: reports: no symptoms reported Allergic/Immunologic: reports: no symptoms reported All Other Systems: Reviewed and Negative Past History - Adult - PAST MEDICAL HISTORY-ADULT Review of Records: reports: Old Records Reviewed, Nursing Assessment Review, Medications Reviewed, Social history reviewed & non-contributory. Major Childhood Illnesses: reports: denies history Cardiovascular: reports: CHF, HTN, hyperlipidemia Respiratory: reports: bronchitis, COPD Gastrointestinal: reports: GERD Obstetrical/Gynecological: reports: denies history Genitourinary: reports: kidney disease Musculoskeletal: reports: chronic pain Neurological: reports: headaches/migraines (remote history) Psychiatric: reports: anxiety, depression Endocrine/Immune: reports: Diabetes Other Conditions: reports: denies history - PRIOR SURGERIES/PROCEDURES Surgical/Procedure History: reports: BTL, other (rt shoulder skin cancer removed, shunt left arm) - IMMUNIZATION STATUS Childhood Immunizations: UTD Flu Vaccine: See Nurse Assessment - FAMILY HISTORY Family History: reviewed, not pertinent - SOCIAL HISTORY Smoking: denies, non-smoker Substance Use: none/never, denies Alcohol Use Frequency: never Physical Exam-General - PHYSICAL EXAM-ADULT Initial Vital Signs Reviewed: Yes - CONSTITUTIONAL General Appearance: alert, mild distress - EYES Eyes: PERRL/EOMI, pink conjunctivae - NECK Neck: non-tender, full range of motion - RESPIRATORY Respiratory: chest non-tender, lungs clear, normal breath sounds, no pleuratic chest pain, no respiratory distress, no accessory muscle use - CARDIOVASCULAR Cardiovascular: normal peripheral pulses, regular rate, rhythm, no edema, no gallop, no JVD - GASTROINTESTINAL (ABDOMEN) Abdominal Exam: soft, tenderness (Mildly) - MUSCULOSKELETAL Extremity: normal range of motion, non-tender - SKIN Integumentary: normal color, warm/dry - NEUROLOGIC Neurologic: grossly normal, no motor/sensory deficits - PSYCHIATRIC Psych/Mental Status: normal mood/affect, normal thought content, normal thought process, oriented x 3 Progress - PLAN OF CARE/RESULTS Progress/Plan/Lab Results: Vital Signs - 8 hr 05/26/19 19:54 Temperature 99.0 F Pulse Rate 126 H Respiratory Rate 18 Blood Pressure 110/56 O2 Sat by Pulse Oximetry 93 L Laboratory Results - last 24 hr 05/26/19 05/26/19 20:03 22:09 POC Glucose 96 Urine Color YELLOW Urine Clarity CLEAR Urine pH 5.0 Ur Specific [place] 1.015 Urine Protein 1+(30 mg/dL) A Urine Ketones NEGATIVE Urine Blood NEGATIVE Urine Nitrite NEGATIVE Urine Bilirubin NEGATIVE Urine Urobilinogen NORMAL Urine WBC 1+ A Urine Glucose NEGATIVE Orders Category Date Time Status C DIFF TOXIN PL Stat Lab 05/26/19 22:01 Uncollected CBC WITH DIFF [HEME] Stat Lab 05/26/19 22:01 Ordered CK PROFILE [SP CHEM] Stat Lab 05/26/19 22:01 Ordered COMPREHENSIVE METABOLIC PANEL [CHEM] Stat Lab 05/26/19 22:02 Ordered OCCULT BLOOD DIAG 1-[address] Stat Lab 05/26/19 22:01 Uncollected ua [URINALYSIS PL W/POSS RFLX CULT] [URINALYSIS] Stat Lab 05/26/19 22:09 Results Result Diagrams: 05/26/19 22:30 05/26/19 22:30 Departure - Departure Date of Disposition Decision: 05/26/19 Time of Disposition Decision: 06:45 DIAGNOSIS: Gastroenteritis, CKD (chronic kidney disease) stage 4, GFR 15-29 ml/min Disposition: ADMITTED INPATIENT 09 Certified Medical Emergency: Emergent Condition: Fair Additional Freetext Instructions: ED Follow Up Instructions: You have been treated by a care provider in the Emergency Department. These instructions are being provided to you so you can have an understanding of how to care for yourself upon discharge. Upon discharge from the Emergency Department, you are responsible for making arrangements for follow-up care by a physician of your choice. Take all prescribed medications as directed. Return to the Emergency Department immediately for any new or worsening symptoms. You may call the Physician Referral phone number at [phone] to obtain a list of Physicians who are taking new patients. Referrals and Follow-Ups: Wilferdo Cornejo MD [Primary Care Provider] - - Critical Care Note This patient required my direct & personal management of CC.: No Attestation - Physician/ MEG Attestation Patient care was provided by Advanced Practice Provider:: No The physician spent face to face time with patient:: Yes Advanced Practice Provider documentation review:: Supervising physician onsite and consulted in the evaluation and care of this patient. The physician did have a face to face encounter with the patient. This chart was documented by the indicated scribe, (Drake Claire, Sally) and accurately reflects the services I performed and decisions made by me, Ray Young MD, as attested by the provider's signature.
[2019-05-27] MEDS ORDERED: TYLENOL ONE (07:40)
[2019-05-27] MEDS ORDERED: TYLENOL PO ONE (07:42)
[2019-05-27 08:17] LABS: HEMATOCRIT 32.8 % (37.0-47.0); MCH 31.7 PG (27-31); MCHC 33.5 g/dL (33-37); MCV 94.5 FL (81-99); RBC 3.47 XMIL (4.2-5.4)
[2019-05-27 08:18] LABS: BASO# 0.02 X1000 (0.0-0.2); BASO% 0.4 % (0.0-0.8); IMM GRAN# 0.01 X1000 (0.0-0.04); IMM GRAN% 0.2 % (0.0-0.5); LYMPH# 1.35 X1000 (1.2-3.4); LYMPH% 25.5 % (20.5-51.1); MONO# 0.67 X1000 (0.11-0.59); MONO% 12.6 % (1.7-9.3); MPV 13.2 FL (7.4-10.4); NEUT# 3.25 X1000 (1.4-6.5); NEUT% 61.3 % (42.2-75.2); PLT 89 X1000 (130-400)
[2019-05-27 08:31] LABS: ALBUMIN 3.5 g/dL (3.5-5.0); CALCIUM 7.8 mg/dL (8.8-10.2); CREATININE 4.7 mg/dL (0.5-0.9); POTASSIUM 3.7 mmol/L (3.5-5.1); TOTAL BILIRUBIN 0.5 mg/dL (0.20-1.00); TOTAL PROTEIN 5.9 g/dL (6.3-8.3)
[2019-05-27 08:36] LABS: INR 1.06; PROTIME 14.3 Seconds (11.0-16.0); PTT 27.3 Seconds (22.3-41.8)
--- NOTE | 2019-05-27 09:56 | HISTORY AND PHYSICAL ---
PRIMARY CARE PHYSICIAN: Dr. Wilfredo Cornejo. CHIEF COMPLAINT: Nausea, vomiting and diarrhea for the past 2 days with 9 episodes of vomiting. States that she missed her dialysis yesterday due to feeling bad and also had some increased shortness of breath. HISTORY OF PRESENTING ILLNESS: This is a 74-year-old female who presents to [facility] ER with complaints of nausea, vomiting, and diarrhea over the past 2 days. States she had a cramping in her abdomen, 9 episodes total of vomiting over the past 2 days. States she has end-stage renal disease and receives dialysis on Friday, Friday, and Friday, but was unable to go yesterday due to feeling so bad. When she arrived she was mildly tachycardic at 126. She had a low-grade temperature of 99 degrees, This morning around 7:30, her temperature went up to 101.2. She did not have an elevation in her white blood cell count. Her BUN and creatinine were 42 and 4.5, but again she is end stage renal dialysis so she was admitted for further evaluation and treatment. PAST MEDICAL HISTORY: Of end-stage renal disease with dialysis on Friday, Friday, Friday, diabetes type 2, hypertension, depression and anxiety. PAST SURGICAL HISTORY: Of a hysterectomy, skin cancer removal, right shoulder surgery, and a AV graft to her left arm for her dialysis. FAMILY HISTORY: Reviewed and noncontributory. SOCIAL HISTORY: She currently lives with her daughter. Denies any tobacco, alcohol or illicit drug use. ALLERGIES: Aspirin and D C yellow. #10. HOME MEDICATIONS: A current list will need to be obtained, reconciled, reviewed and restarted as appropriate. Will place an order for nursing to update and confirm home medications. LABORATORY DATA: Showed a white blood cell count of 5.40, hemoglobin 12.1, hematocrit 36, platelets 84,000. Sodium 135, potassium 3.9, chloride 94, CO2 27, BUN of 42, creatinine 4.5, glucose 81. Cardiac enzyme was negative. Plasma lactate of 0.6. Urinalysis was negative except for 1+ white blood cells. REVIEW OF SYSTEMS: She denied any fever at home, chills, blurred vision, dizziness, chest pain, coughing, shortness of breath. She had some mild abdominal cramping, nausea, vomiting, and diarrhea. Denied any burning or hurting with urination. PHYSICAL EXAMINATION: On arrival she had a temperature of 99 degrees, pulse 126, respirations 18, blood pressure 110/56 saturating 93% on room air. Approximately 30 minute after arriving, she dropped her O2 saturation to 89% on room air, was placed on 3 L via nasal cannula now at a 96%. This morning around 7:30 she spiked a temperature of 101.2 degrees. Currently down to the 99.9 degrees. GENERAL: This is a 74-year-old female lying in the bed and answers questions appropriately. HEENT: Normocephalic, atraumatic. Normal ENT inspection. Oropharynx and nares are clear. NECK: Normal inspection, normal range of motion. LUNGS: Clear to auscultation bilaterally with equal lung expansion and chest wall movement. HEART: With regular rate and rhythm. No murmurs, rubs, or gallops. ABDOMEN: Soft, nontender, nondistended. Bowel sounds are present x4 quadrants. MUSCULOSKELETAL: She had 5/5 strength x4 extremities. NEUROLOGICAL: The cranial nerves 2-12 appear grossly intact. ASSESSMENT: 1. Gastroenteritis. 2. Fever secondary to #1. 3. Hypoxemia, improved with O2. 4. End-stage renal disease with dialysis. 5. Diabetes type 2. 6. Hypertension. PLAN: She was initially admitted to the medical floor at [facility] but will be transferred to [facility] for dialysis evaluation. She will be placed on telemetry, Zofran 4 mg IV q.4 hours p.r.n. Consult Nephrology. Place on a clear liquid diabetic diet. O2 per protocol. Serial plasma lactate per protocol. We need to update and confirm her home medications and recheck a CBC BMP in the a.m. Further orders after seen by attending and by economic consultant. Dictated by ROSHNI Beckford for Wilfredo Cornejo MD cc: ROSHNI Beckford MD
--- NOTE | 2019-05-27 11:39 | Diag Imaging Result Doc PS360 ---
EXAM: ABDOMEN FLAT/UPRIGHT 05/27/2019 HISTORY: N/V/D TECHNIQUE: Flat and upright abdomen two views COMMENT: There is a nonspecific bowel gas pattern. The stomach is not distended and there is no evidence for organomegaly or mass. There are numerous phleboliths in the pelvis. IMPRESSION: Nonspecific abdomen. No evidence of obstruction. Electronically signed by Justin Chavez 05/27/2019 11:37 AM
[2019-05-27] MEDS: ZOFRAN IV PRN ×2 (12:49→22:55)
[2019-05-27] MEDS ORDERED: NS 1,000 ML IV ONE (17:43)
--- NOTE | 2019-05-27 18:03 | Diag Imaging Result Doc PS360 ---
EXAM: CT ABD/PELVIS W/PO AND IV CON INDICATION: fever, colitis TECHNIQUE: This exam was performed using automated exposure control, adjustment of mA or kV according to patient size, and/or use of iterative reconstruction technique. COMPARISON: 05/05/2019 FINDINGS: There are small stones layering in the gallbladder lumen. The contour of the liver is subtly nodular. Although questionable, it is possible that it represents mild cirrhosis. The liver is unremarkable, otherwise. The spleen, pancreas, and adrenal glands are essentially unremarkable. The kidneys have a lobulated contour suggesting persistent lobulation, a normal variant. There is no hydronephrosis. The urinary bladder is largely nondistended and is grossly unremarkable, otherwise. There are a few loops of distal small bowel that exhibit mild wall thickening in the right lower quadrant suggesting nonspecific enteritis, probably infectious. The colonic wall does not appear to be significantly thickened. The appendix appears normal. The remainder of the GI tract is grossly unremarkable. The reproductive tract is unremarkable as imaged. There is a small inguinal hernia on the left that contains only fat, stable. There is stable height loss at the L4 and L5 vertebral bodies. IMPRESSION: 1.Mild thickening of several loops of distal small bowel in the right lower quadrant suggesting enteritis, likely infectious. 2.Other incidental/nonacute findings detailed above. Electronically signed by Tee Valdes 05/27/2019 6:00 PM
[2019-05-27] MEDS: MORPHINE IV PRN (19:38)
[2019-05-27] MEDS: LEVAQUIN 500 MG/D5W 500 MG/100 ML IVPB IV SCH (19:51)
[2019-05-27] MEDS: FLAGYL 500 MG/NS 500 MG/100 ML IVPB IV SCH (19:51)
[2019-05-27] MEDS: ROBAXIN PO SCH (20:12)
--- NOTE | 2019-05-27 20:13 | HISTORY AND PHYSICAL ---
ADDENDUM: HISTORY OF PRESENT ILLNESS: Patient seen and examined by myself. Full note dictated and discussed with nurse practitioner. Patient presented to the hospital with nausea, vomiting, abdominal pain. She gets dialysis in [place] on Friday, Friday, Friday. She did not go yesterday, Friday, secondary to being nauseated, having low-grade fever, and overall feeling bad. She presented to the hospital today. ASSESSMENT/PLAN: We are going to admit her to the hospital, and treat her enteritis, place her on fluids, will transfer her to [facility] as she will likely need dialysis before she can be discharged home, and will follow. cc: Wilfredo Cornejo MD
[2019-05-27] MEDS: HUMULIN R SUBQ SCH (21:01)
[2019-05-27] MEDS: ALBUTEROL NEB INH SCH (21:27)
[2019-05-28] MEDS: FLAGYL 500 MG/NS 500 MG/100 ML IVPB IV SCH ×2 (06:09→18:42)
[2019-05-28] MEDS: HUMULIN R SUBQ SCH ×4 (06:53→21:19)
[2019-05-28] MEDS ORDERED: TIGHT: 0.2 ML/HR FOR DIALYSIS MISC PRN (07:22)
[2019-05-28] MEDS ORDERED: HEPARIN IV PRN (07:22)
[2019-05-28] MEDS ORDERED: NS 2,000 ML MISC PRN (07:22)
[2019-05-28] MEDS: ROBAXIN PO SCH ×2 (08:41→21:25)
[2019-05-28] MEDS: HYZAAR 50/12.5 MG PO SCH (08:41)
[2019-05-28] MEDS ORDERED: ZYVOX PO SCH (09:00)
[2019-05-28] MEDS ORDERED: COZAAR PO SCH (09:00)
[2019-05-28] MEDS ORDERED: CATHFLO IV ONE ×2 (10:00→11:20)
[2019-05-28] MEDS ORDERED: STERILE WATER INJ. INJ ONE ×2 (10:00→11:20)
[2019-05-28] MEDS: ALBUTEROL NEB INH SCH ×3 (10:05→20:05)
[2019-05-28 10:46] LABS: BASO# 0.02 X1000 (0.0-0.2); BASO% 0.4 % (0.0-0.8); EOS# 0.06 X1000 (0.0-0.7); EOS% 1.3 % (0.0-10.0); HEMATOCRIT 29.5 % (37.0-47.0); HEMOGLOBIN 9.8 g/dL (12.0-16.0); IMM GRAN# 0.02 X1000 (0.0-0.04); IMM GRAN% 0.4 % (0.0-0.5); LYMPH# 1.05 X1000 (1.2-3.4); LYMPH% 22.9 % (20.5-51.1); MCH 30.7 PG (27-31); MCHC 33.2 g/dL (33-37); MCV 92.5 FL (81-99); MONO# 0.63 X1000 (0.11-0.59); MONO% 13.8 % (1.7-9.3); MPV 13.5 FL (7.4-10.4); NEUT% 61.2 % (42.2-75.2); PLT 74 X1000 (130-400); RBC 3.19 XMIL (4.2-5.4); WBC 4.58 X1000 (4.8-10.8)
[2019-05-28 11:41] LABS: CALCIUM 7.6 mg/dL (8.8-10.2); CREATININE 5.6 mg/dL (0.5-0.9); POTASSIUM 4.1 mmol/L (3.5-5.1)
[2019-05-28 12:33] LABS: HEMOGLOBIN A1C 6.9 % (4.8-6.0)
[2019-05-28] MEDS: MORPHINE IV PRN ×2 (13:10→21:28)
--- NOTE | 2019-05-28 14:16 | NEPHROLOGY PROGRESS NOTE ---
DATE: 05/28/2019 SUBJECTIVE: Her diarrhea is still present but improved. She has been able to eat some. No shortness of breath. OBJECTIVE: Vital signs: Blood pressure 127/46, heart rate 77, respirations 18, afebrile. General: Chronically ill, elderly woman, no acute distress. Skin: Warm and dry. Neck: Neck veins are not distended. Cardiovascular: Heart is regular. No gallops. Respiratory: Lungs are equal. No crackles or wheezes. Abdomen: Soft, nontender. Bowel sounds present. Extremities: With no edema clubbing or cyanosis. IMPRESSION: Chronic kidney disease 5D. Unfortunately, her dialysis catheter will not run today despite treatment with Activase. I have contacted Dr. Mcfarlane who will assist by placing a tunneled catheter in the morning. Her volume status is acceptable and labs are acceptable so we will hold dialysis until her catheter is exchanged tomorrow. cc: Simone Barrett MD
[2019-05-28] MEDS ORDERED: VANCOMYCIN 1 GM/NS 1 GM/250 ML IVPB IV ONE (16:18)
[2019-05-28] MEDS ORDERED: VANCOMYCIN 500 MG/NS 500 MG/100 ML IVPB IV SCH (17:15)
--- NOTE | 2019-05-28 17:35 | PROGRESS NOTE ---
DATE: 05/28/2019 SUBJECTIVE: The patient looks well. Her nausea/vomiting, diarrhea have improved. OBJECTIVE: Vital Signs: Blood pressure is 160/57, heart rate 87, respiratory rate 18, temperature 98.2 degrees, her temperature maximum was 101.2 degrees. Cardiovascular: Regular rate and rhythm. Pulmonary: Bilateral breath sounds clear to auscultation. Gastrointestinal: Soft, nontender, nondistended. Bowel sounds were positive. Extremity: No clubbing or cyanosis. Lymphatic: No peripheral edema. Neurological: Nonfocal. LABORATORY DATA: Her white count is 404, hemoglobin 9, hematocrit 29, platelets 74,000. Sodium is down to 127, BUN 63, creatinine 5.6. PROBLEM LIST: 1. Gastroenteritis. She is still fairly ill from this, but she had fevers which is a bit atypical. CT just shows enteritis. She has a lot of white blood cells in her stool. She is heme positive. I will probably get a Gastroenterology opinion. I have empirically started Levaquin and Flagyl, and we will continue to follow. 2. Bacteremia. I am going to go ahead and put her on vancomycin. In any case, her dialysis catheter stopped working, and it is suspicious maybe that this is the cause of infection, although it certainly would not necessarily explain her GI symptoms, but those have abated. I will continue vancomycin until we get the blood cultures back. We are going to continue to follow closely. The catheter is being removed in any case because it is not functional, but we may need to be careful about putting another tunneled catheter. I will discussed with Dr. Barrett, and we will see. 3. Diabetes. We will continue to follow blood sugars. DISPOSITION: Pending clinical status. Probably can go ahead and advance her diet and follow. I am going to put her on some probiotics as well. cc: Sascha Delgado MD [facility]
--- NOTE | 2019-05-28 20:02 | GENERAL SURGERY CONSULTATION ---
DATE: 05/28/2019 REASON FOR CONSULTATION: Tunneled dialysis catheter placement. HISTORY OF PRESENT ILLNESS: This is a 74-year-old female with multiple episodes of nausea, vomiting, and diarrhea for several days. She missed her dialysis yesterday and is having worsening shortness of breath. She also had a fever up to 101.2. Her tunneled dialysis catheter apparently is not functioning. It has been treated with Activase and still was nonfunctioning. PAST MEDICAL HISTORY: End-stage renal disease, hypertension, depression, anxiety, type 2 diabetes. PAST SURGICAL HISTORY: Hysterectomy, skin cancer removal, left forearm AV graft which has failed, and left chest tunneled dialysis catheter, which is nonfunctioning. FAMILY HISTORY: Reviewed and noncontributory. SOCIAL HISTORY: She lives with daughter. She denies tobacco, alcohol, or illicit drug use. CURRENT MEDICATIONS: Hyzaar, albuterol, Humulin, Levaquin, Robaxin, Flagyl, vancomycin. ALLERGIES: Aspirin. REVIEW OF SYSTEMS: Positive for abdominal cramping, nausea, vomiting, diarrhea. Otherwise, 10 systems reviewed and negative except as noted above in HPI. PHYSICAL EXAMINATION: Vital Signs: Temperature 98.5 degrees, pulse 90, respirations 18, blood pressure 142/52, and O2 saturation 99%. General: Elderly female in no acute distress, who looks her stated age. HEENT: Normocephalic, atraumatic. Extraocular muscles intact. Pupils equal, round, reactive to light. Sclerae anicteric. Moist mucous membranes. Hearing grossly normal. Neck: Supple no thyromegaly. Cardiovascular: Regular rate and rhythm. Respiratory: Bilateral breath sounds. No work of breathing. Gastrointestinal: Soft, nondistended, no organomegaly or mass. Minimal tenderness. Extremities: Her left forearm AV graft has no flow. Her left chest tunneled dialysis catheter is intact, but the cuff is outside the skin. There is no drainage or redness around it. Musculoskeletal: Moves all extremities equally and well. LABORATORY DATA: CBC and metabolic profile reviewed and unremarkable. IMAGING STUDIES: An abdominal pelvis CT scan showed mild thickening of several loops of distal small bowel, which likely suggest enteritis. ASSESSMENT AND PLAN: A 74-year-old female with likely gastroenteritis and now nonfunctioning tunneled dialysis catheter. We will plan to place a new tunneled dialysis catheter tomorrow and remove her old one. I discussed the risks and benefits with her including bleeding, infection, injury to surrounding organs, such as pneumothorax, catheter malfunction, and other imponderables. She understands and agrees to proceed. cc: Toribio Mcfarlane MD
[2019-05-29] MEDS: HUMULIN R SUBQ SCH ×4 (06:12→20:41)
[2019-05-29] MEDS: FLAGYL 500 MG/NS 500 MG/100 ML IVPB IV SCH ×2 (06:13→20:03)
[2019-05-29 06:19] LABS: BASO# 0.02 X1000 (0.0-0.2); BASO% 0.5 % (0.0-0.8); EOS# 0.21 X1000 (0.0-0.7); EOS% 5.5 % (0.0-10.0); HEMATOCRIT 28.5 % (37.0-47.0); HEMOGLOBIN 9.4 g/dL (12.0-16.0); IMM GRAN# 0.02 X1000 (0.0-0.04); IMM GRAN% 0.5 % (0.0-0.5); LYMPH# 0.71 X1000 (1.2-3.4); LYMPH% 18.7 % (20.5-51.1); MCH 30.1 PG (27-31); MCV 91.3 FL (81-99); MONO# 0.43 X1000 (0.11-0.59); MONO% 11.3 % (1.7-9.3); MPV 12.8 FL (7.4-10.4); NEUT# 2.41 X1000 (1.4-6.5); NEUT% 63.5 % (42.2-75.2); PLT 92 X1000 (130-400); RBC 3.12 XMIL (4.2-5.4); RDW 13.9 % (11.5-14.5)
[2019-05-29 06:45] LABS: CREATININE 6.4 mg/dL (0.5-0.9); POTASSIUM 4.1 mmol/L (3.5-5.1)
[2019-05-29] MEDS ORDERED: CALCIUM GLUCONATE 1 GM in NS 50 ML IV ONE (07:00)
[2019-05-29] MEDS ORDERED: ROBINUL ONE (08:43)
[2019-05-29] MEDS ORDERED: QUELICIN (DOSE) ONE (08:44)
[2019-05-29] MEDS ORDERED: DIPRIVAN 1% ONE (08:44)
[2019-05-29] MEDS ORDERED: XYLOCAINE-MPF 2% ONE (08:44)
[2019-05-29] MEDS: ALBUTEROL NEB INH SCH ×3 (09:47→20:00)
[2019-05-29] MEDS ORDERED: NS 250 ML ONE (10:01)
[2019-05-29] MEDS ORDERED: XYLOCAINE 1%/EPI 1:100,000 ONE (10:01)
[2019-05-29] MEDS ORDERED: NS 2,000 ML MISC PRN (10:33)
--- NOTE | 2019-05-29 12:09 | Diag Imaging Result Doc PS360 ---
EXAM: CHEST-PORTABLE HISTORY: s/p cvl TECHNIQUE: Chest single view COMPARISON: 05/05/2019 FINDINGS: The lungs are well expanded. The heart is not enlarged. The vessels are not distended. There are no infiltrates. No effusion identified. Left-sided portacatheter. No pneumothorax. IMPRESSION: No postprocedural pneumothorax. Electronically signed by Yasmani Lozano 05/29/2019 12:07 PM
--- NOTE | 2019-05-29 14:48 | OPERATIVE NOTE ---
PROCEDURE DATE: 05/29/2019 PREOPERATIVE DIAGNOSES: 1. End-stage renal disease. 2. Dysfunctional dialysis catheter. POSTOPERATIVE DIAGNOSIS: 1. End-stage renal disease. 2. Dysfunctional dialysis catheter. PROCEDURE: 1. Placement of tunneled dialysis catheter with fluoroscopic and ultrasound guidance. 2. Removal of dysfunctional dialysis catheter. SURGEON: Toribio Mcfarlane MD. CASTING OPERATOR HELPER: Hiwot Clark MS 3. ANESTHESIA: General. ESTIMATED BLOOD LOSS: 15 mL. COMPLICATIONS: None apparent. SPECIMENS: None. FINDINGS: The right internal jugular vein appeared to be thrombosed and very small. The left internal jugular vein was compressible, patent and without thrombus on ultrasound. Fluoroscopy revealed placement of the wire to the superior vena cava followed by the tip of the catheter to the superior vena cava. TECHNIQUE: She was brought to the operating room and placed supine on the table. General anesthesia was induced. She was prepped and draped in usual sterile fashion. Beginning in the right neck, I used ultrasound to evaluate for the internal jugular vein, but it did not appear to be amenable to catheter placement. In the left neck the internal jugular vein was visualized. It was compressible, patent without thrombus. The skin over the vein was anesthetized with lidocaine a small incision was made in the skin. The vein was then accessed under ultrasound guidance with 1 stick, drawing back dark nonpulsatile blood. The wire passed through the needle and under fluoroscopy the wire was directed into the superior vena cava and right atrial. I then dilated the tract under fluoroscopic guidance and passed the sheath over the wire. There was some moderate difficulty navigating from the left internal jugular across the subclavian to the superior vena cava. I did have to change from the wire in the kit to a Glidewire. After the sheath was in place the wire and dilator were removed. The catheter was tunneled subcutaneously from a incision below the left clavicle out through the neck incision. The tip of the catheter was passed into the sheath. The sheath was removed. The tip of the catheter was confirmed to be in the superior vena cava with fluoroscopy. Both ports eugene back blood easily and were flushed with saline easily. Sterile caps were applied. The exit site and neck incision were closed with a subcuticular 3-0 Polysorb. The catheter was anchored to the skin with nylon suture. The old catheter was removed easily with gentle traction and a pressure dressing was placed over that exit site. She tolerated this well. There were no apparent complications. cc: Toribio Mcfarlane MD
--- NOTE | 2019-05-29 15:48 | NEPHROLOGY PROGRESS NOTE ---
DATE: 05/29/2019 SUBJECTIVE: She is currently on dialysis. She had her catheter exchanged and has good catheter function today. No chest pain or other complaints. Still is having some diarrhea. OBJECTIVE: Vital Signs: Blood pressure 135/71, heart rate 86, respirations 15, afebrile. General: No acute distress. Skin: Warm and dry. HEENT: Conjunctivae are pink. Neck: Neck veins are not appreciated. Heart: Regular without gallops. Lungs: Equal. No crackles. Abdomen: Soft. Nontender. Extremities: Have no edema, clubbing or cyanosis. IMPRESSION: Chronic kidney disease 5D. Continue routine hemodialysis today. Minimal urine high ultrafiltration today. A 4 K bath. Mild metabolic acidosis and hyponatremia that will be addressed with dialysis. cc: Simone Barrett MD
[2019-05-29] MEDS ORDERED: VANCOMYCIN 500 MG/NS 500 MG/100 ML IVPB IV ONE (17:00)
[2019-05-29] MEDS: ROBAXIN PO SCH ×2 (17:04→20:39)
[2019-05-29] MEDS: HYZAAR 50/12.5 MG PO SCH (17:05)
--- NOTE | 2019-05-29 17:37 | PROGRESS NOTE ---
DATE: 05/29/2019 SUBJECTIVE: The patient has no complaints. She is getting dialyzed now. She got her catheter put in this morning. OBJECTIVE: Blood pressure is 135/71, heart rate of 86, respiratory rate of 15, temperature 97.1 degrees.Cardiovascular: Regular rate and rhythm. Pulmonary: Bilateral breath sounds. Clear to auscultation. GI: Soft, nontender, nondistended. Bowel sounds are positive. LABORATORY DATA: White count 3.8, hemoglobin and hematocrit 9 and 28, platelets of 92,000. BUN and creatinine are 68 and 6.4 with a calcium of 7. PROBLEM LIST: 1. Gastroenteritis that seems to be doing better. She has only had a couple loose stools. Her workup has been negative except for some white blood cells. I think she was Hemoccult positive but her hemoglobin and hematocrit has been stable the last 2 days and she has not had any gross bleeding and clinically it appeared to be more consistent with a gastroenteritis. 2. Bacteremia. She has coag-negative staph in 1/2 bottles so it is likely a contaminant but she did have a catheter that was not working and fevers, which could be a gastritis. I am just going to get Infectious Disease input just to make sure that we do not need to give her any further treatment. 3. Diabetes. We will continue to follow blood sugars. DISPOSITION: Once we stabilize her I think we should be able to get her home soon. cc: Sascha Delgado MD
[2019-05-29] MEDS: TYLENOL PO PRN (18:42)
[2019-05-29] MEDS: LEVAQUIN 500 MG/D5W 500 MG/100 ML IVPB IV SCH (20:39)
[2019-05-30] MEDS: TYLENOL PO PRN (01:07)
[2019-05-30 06:16] LABS: BASO# 0.02 X1000 (0.0-0.2); BASO% 0.6 % (0.0-0.8); EOS# 0.21 X1000 (0.0-0.7); EOS% 5.9 % (0.0-10.0); HEMATOCRIT 29.3 % (37.0-47.0); HEMOGLOBIN 9.8 g/dL (12.0-16.0); IMM GRAN# 0.06 X1000 (0.0-0.04); IMM GRAN% 1.7 % (0.0-0.5); LYMPH# 0.72 X1000 (1.2-3.4); LYMPH% 20.3 % (20.5-51.1); MCH 31.1 PG (27-31); MCHC 33.4 g/dL (33-37); MONO# 0.43 X1000 (0.11-0.59); MONO% 12.1 % (1.7-9.3); MPV 12.7 FL (7.4-10.4); NEUT# 2.11 X1000 (1.4-6.5); NEUT% 59.4 % (42.2-75.2); PLT 98 X1000 (130-400); RBC 3.15 XMIL (4.2-5.4); RDW 14.1 % (11.5-14.5); WBC 3.55 X1000 (4.8-10.8)
[2019-05-30] MEDS: HUMULIN R SUBQ SCH ×3 (06:17→16:46)
[2019-05-30] MEDS: FLAGYL 500 MG/NS 500 MG/100 ML IVPB IV SCH (06:18)
[2019-05-30 06:57] LABS: CALCIUM 7.8 mg/dL (8.8-10.2); CREATININE 4.6 mg/dL (0.5-0.9); POTASSIUM 3.4 mmol/L (3.5-5.1)
[2019-05-30] MEDS: ROBAXIN PO SCH ×2 (08:48→21:05)
[2019-05-30] MEDS: HYZAAR 50/12.5 MG PO SCH (08:48)
--- NOTE | 2019-05-30 09:23 | INFECTIOUS DISEASE CONSULT REP ---
DATE: 05/30/2019 CONCLUSION: The patient has Campylobacter enteritis. She also has one out of two blood cultures growing a coagulase-negative staphylococcus. I think this is a contaminant. RECOMMENDATIONS: I have discontinued Flagyl and Levaquin, and I put the patient on azithromycin 500 mg p.o. daily. I would suggest treating for at least 3 days and if the patient's diarrhea has cleared or if it is getting better, most likely, you will not have to treat any more than the 3 days but if her diarrhea still is fairly profuse, then azithromycin should be continued. The patient is telling me that her diarrhea is much better and, therefore, most likely, the azithromycin will only be needed for 3 days. As regarding the coagulase- negative staphylococcus in the patient's one blood culture out of two, this is a contaminant and because of that, it does not require antibiotic treatment. I have discontinued Flagyl, Levaquin, and vancomycin. DISCUSSION: The patient tells me that about a week ago, she started having nausea, vomiting, and diarrhea. She has also had fever and lower abdominal pain. All of these symptoms are better. She has been receiving IV Flagyl and Levaquin as well as vancomycin after each dialysis. The patient's laboratory studies show a CBC with a white count of 3550, hemoglobin 9.8, and platelet count 98,000. Creatinine is 4.6. GFR is 9. Urinalysis shows no white cells or bacteria. Stool for Clostridium difficile is negative. Stool culture is growing presumptive Campylobacter. Chest x-ray shows a left-sided Port-A-Cath present. CT scan of the abdomen and pelvis shows small bowel thickening suggestive of enteritis. As mentioned above, one out of two blood cultures is growing a coagulase-negative staphylococcus. LENS EDGER HISTORY: She is a 6, para 6, AB 1. She has had a hysterectomy. REVIEW OF SYSTEMS: Head, Eyes, Ears, Nose, and Throat: The patient does get headaches. This has been going on for many years. She also wears glasses. She can hear well. Neck: No stiffness. Respiratory: No cough or shortness of breath. Cardiac: No chest pain or palpitations. GI: See present illness. : No dysuria or flank pain. Neurologic: The patient does not have seizures. She told me that she has a decreased use of the left arm, specifically the left hand. Integument: No rash. PRESENT ILLNESS: The patient also has experienced lower abdominal pain. PREVIOUS HOSPITALIZATIONS AND OPERATIONS: The patient has had removal of a skin cancer, a right shoulder surgery, an AV graft in her left arm for purposes of dialysis. Unfortunately, the graft is not working. She also had a tunneled dialysis catheter put in, in the left chest. She has had labor and deliveries, a miscarriage, and a hysterectomy. MEDICAL DISEASES: Positive for end-stage renal disease for which the patient is on dialysis. She also is a diabetic. She has hypertension, depression and anxiety, and gallstones. FAMILY HISTORY: Positive for diabetes mellitus, hypertension, stroke. SOCIAL HISTORY: The patient lives with her daughter. She has dogs for pets. She does not smoke cigarettes, drink alcoholic beverages, or abuse drugs. DRUG ALLERGIES: Patient is allergic to aspirin and D and C yellow #10. HOME MEDICATIONS: Include albuterol inhaler, amlodipine, clonidine, Lomotil, furosemide, gabapentin, hydralazine, hydrocodone, losartan/hydrochlorothiazide, Mobic, Robaxin, Protonix, and Phenergan. PHYSICAL EXAMINATION: Vital Signs: Temperature is 98.1 degrees, pulse 82, respirations 15, blood pressure 123/48. The patient weighs 149 pounds. General: This is a somewhat ill-appearing, elderly female. She is in no acute distress. Head, Eyes, Ears, Nose, and Throat: She can hear my spoken words and see near objects. She does not have any white patches in her mouth. Neck: No meningismus. Lungs: Clear to auscultation. Cardiovascular: Regular heart rate. Abdomen: Soft and nontender. Neurologic: The patient is alert. She can move her extremities. There is no tremor. Her memory as regarding her medical history was slightly reduced. Integument: No rash noted. I am signing off the patient's case but I am available to see her prn. Thank you for the consult. cc: Christian Gonzalez MD MTDD
[2019-05-30] MEDS: ZITHROMAX PO SCH (10:03)
--- NOTE | 2019-05-30 10:15 | GENERAL SURGERY PROGRESS NOTE ---
DATE: 05/30/2019 SUBJECTIVE: No new complaints. OBJECTIVE: Vital signs: Afebrile. Vital signs are stable. Skin: The left chest and neck were examined. The catheter is intact without hematoma or drainage. IMAGING: The chest x-ray yesterday revealed good placement of the catheter without pneumothorax. ASSESSMENT AND PLAN: A 74-year-old female status post replacement of tunneled dialysis catheter. There appears to be no immediate postoperative complication. We will sign off for now. cc: Toribio Mcfarlane MD
[2019-05-30] MEDS: ALBUTEROL NEB INH SCH ×3 (10:30→20:02)
--- NOTE | 2019-05-30 15:02 | PROGRESS NOTE ---
DATE: 05/30/2019 SUBJECTIVE: She feels better, much improved. OBJECTIVE: Blood pressure 153/78, heart rate 89, respiratory rate 20, temperature 98.3 degrees, 100% on room air. She is sitting up in bed, eating, doing well. Laboratory Data: Her stool culture has ended up showing likely Campylobacter which, with all her data, I think is essentially consistent with her process because she has an enteritis and had fever. She is on azithromycin, which is current recommendations per Dr. Gonzalez. Treat for 3 days. ASSESSMENT AND PLAN: 1. Discharge condition is stable. Anticipate discharge either later today or in the morning. She is heme-positive but that can be seen with Campylobacter. 2. Bacteremia is a contaminant. Dr. Gonzalez does not feel we need to do anything further. It was one out of two and we have a clear alternative source for her fevers. 3. Diabetes. We will follow blood sugars. 4. Stabilization. Anticipate discharge tomorrow. cc: Sascha Delgado MD
[2019-05-31] MEDS: HUMULIN R SUBQ SCH ×3 (04:25→14:21)
[2019-05-31] MEDS ORDERED: NS 2,000 ML MISC PRN (06:35)
[2019-05-31] MEDS ORDERED: TIGHT: 0.2 ML/HR FOR DIALYSIS MISC PRN (06:35)
[2019-05-31] MEDS ORDERED: HEPARIN IV PRN (06:35)
[2019-05-31 07:40] VITALS: BP 157/53
[2019-05-31] MEDS: ALBUTEROL NEB INH SCH ×2 (08:00→15:50)
[2019-05-31 08:11] LABS: ALBUMIN 3.4 g/dL (3.5-5.0); CALCIUM 7.8 mg/dL (8.8-10.2); PHOSPHORUS 5.2 mg/dL (2.7-4.5); POTASSIUM 3.3 mmol/L (3.5-5.1)
[2019-05-31 08:20] LABS: CREATININE 6.2 mg/dL (0.5-0.9)
--- NOTE | 2019-05-31 10:02 | NEPHROLOGY PROGRESS NOTE ---
DATE: 05/31/2019 TIME SEEN: 0730. SUBJECTIVE: Ms. Lemus is a 74-year-old white female. She is currently resting quietly in bed. States that she is feeling much better. Denies chest pain or increased work of breathing. LABORATORY DATA: Sodium 137, potassium 3.3, chloride 100, CO2 of 21, BUN 34, creatinine 6.2, glucose 233. Her anion gap is 16, calcium 7.8, phosphorus 5.2, albumin 3.4. Previous hemoglobin 9.8. The patient has stool culture showing gram-negative rods. Blood cultures are showing coagulase-negative staph. OBJECTIVE: Vital Signs: Temperature 98.4 degrees, blood pressure 133/47, heart rate 85, respirations 20. She is on room air. Last recorded saturation 94%. She has had 2300 in. She has had 800 out to void. General: This is a 74-year-old white female. She appears chronically ill. No acute distress. Skin: Warm and dry. HEENT: Normocephalic, atraumatic. Conjunctiva is pale. She has SRI. Mucous membranes are dry. Neck: Supple. Trachea midline. No evidence of JVD. Cardiovascular: She is regular rate and rhythm without murmur or gallop. Lungs: Clear to auscultation bilaterally. Equal excursion on room air. Abdomen: Soft, nontender. Positive bowel sounds. Genitourinary: Not inspected. The patient voids intermittently with dialysis assist. Extremities: No edema. No clubbing or cyanosis. Integumentary: The patient has a fistula to the left arm, palpable thrill. She also has a dialysis tunneled catheter to the left chest wall. This is dry and intact. Neurological: Alert and oriented x3. ASSESSMENT AND PLAN: 1. Chronic kidney disease stage 5D. The patient is due for her routine dialysis treatment today. We will place her on a 3-potassium bath. She is to dialyze for 3-1/2 hours. We will attempt to pull her to her outpatient dry weight. 2. Electrolytes and acid-base balance. These are acceptable, with hyponatremia improved with dialysis assist. 3. Anemia. This remains low, but stable. 4. Sepsis. The patient is currently on Zithromax. To be evaluated by the primary care. Sensitivity is still pending. I would like to thank you for allowing us to follow with this patient. Dictated by ROSHNI Viveros for Simone Barrett MD Face to face encounter, data reviewed, discussed with Cheko Camacho on 05/31/19. I agree with the above assessment and plan of care. cc: ROSHNI Viveros MD [facility]
[2019-05-31] MEDS: ROBAXIN PO SCH (14:18)
[2019-05-31] MEDS: HYZAAR 50/12.5 MG PO SCH (14:18)
[2019-05-31] MEDS: ZITHROMAX PO SCH (14:19)
--- NOTE | 2019-05-31 14:38 | DISCHARGE SUMMARY ---
ADMISSION DATE: 05/27/2019 DISCHARGE DATE: 05/31/2019 ADDENDUM REPORT DISCHARGE ADDENDUM NOTE: DISCHARGE DIAGNOSES: 1. Campylobacter enteritis. 2. End-stage renal. 3. Bacteremia which was contaminant. 4. Diabetes. SUMMARY: Briefly, the patient came in with significant nausea, vomiting, diarrhea, and was found to have Campylobacter per her stool culture. She was placed on azithromycin and clinically improved. We got an Infectious Disease consult because she had a coag-negative bacteremia. I just wanted to make sure that there was not going to be any contaminated issues. Day of discharge, she is doing well. I saw her in dialysis. Diarrhea has resolved. She is ambulating. Vital signs are stable. She is afebrile. Her abdominal exam is benign, soft, nontender, nondistended. Bowel sounds are positive and it was felt that she could go home today. She will get azithromycin. She got a dose yesterday. She got a dose today and 1 more dose so I have written a prescription for that. DISCHARGE CONDITION: Stable. We will continue to follow. cc: Sascha Delgado MD
--- NOTE | 2019-05-31 15:10 | DISCHARGE SUMMARY ---
ADMISSION DATE: 05/27/2019 DISCHARGE DATE: 05/31/2019 ADMISSION DIAGNOSES: 1. Gastroenteritis. 2. Fever secondary to #1. 3. Hypoxemia improved with oxygen. 4. End-stage renal disease with hemodialysis. 5. Diabetes mellitus type 2. 6. Hypertension. DISCHARGE DIAGNOSES: 1. Bacteremia which was a contaminant. 2. Diabetes. 3. End-stage renal disease. Continues with dialysis. 4. Gastroenteritis positive for Campylobacter. 5. Fever resolved. 6. Hypoxemia resolved. CONSULTATIONS: 1. Dr. Simone Barrett for end-stage renal disease. 2. Dr. Toribio Mcfarlane for a tunneled dialysis catheter. 3. Dr. Christian Gonzalez for fever and possible infected catheter and for Campylobacter. SURGERIES/PROCEDURES: On 05/29/2019, performed by Dr. Toribio Mcfarlane, patient had placement of a tunneled dialysis catheter under fluoroscopic and ultrasound guidance with the removal of a dysfunctional dialysis catheter. No complications. HOSPITAL COURSE: Ms. Jeanette Lemus is a 74-year-old female who comes in with complaints of nausea, vomiting, and diarrhea for 2 days and 9 episodes of vomiting. She missed her dialysis due to feeling so bad. She was tachycardic. Low-grade fever, went up to as high as 101.2. There was question as to whether there was a bacterial bacteremia so the dialysis catheter was changed out by Dr. Mcfarlane. But it is also believed that 1 of the blood cultures was just a contaminant as it was coag-negative staphylococcus. She did have stool that came back with Campylobacter jejuni and was placed on azithromycin for treatment of that, per Dr. Gonzalez's recommendations. She is heme positive but it can be seen in the Campylobacter and she is deemed safe for discharge home. DISCHARGE VITAL SIGNS: Temperature 97.9 degrees, heart rate 86, respiratory rate 15, blood pressure 157/53, O2 saturation 97% on room air. LABORATORY DATA: No CBC today. Yesterday, white blood cell count 3000. Hemoglobin 9, hematocrit 29 ,platelet count 51090. Today, BMP, sodium 137, potassium 3.3, BUN 34, creatinine 6.2, glucose 233, calcium 7.8, phosphorus 5.2, albumin 3.4. IMAGING: Abdominal x-ray, nonspecific abdomen. No evidence of obstruction. Abdominal CT, thickening of several loops of small distal small bowel in the right lower quadrant suggesting enteritis likely infectious. Chest x-ray on the no postprocedural pneumothorax after she had her dialysis catheter placed. No EKGs to note put telemetry showed sinus rhythm. DISCHARGE MEDICATIONS: 1. Albuterol 3 times a day. 2. Amlodipine besylate 10 mg p.o. daily. 3. Apresoline 25 mg p.o. twice daily. 4. Catapres 0.1 mg p.o. twice daily. 5. Lasix 40 mg p.o. twice daily. 6. Neurontin 300 mg p.o. twice daily. 7. Insulin Humalog 75/28, 70 units subcutaneous twice a day. 8. [place] 10, half tab to 1 tab p.o. twice a day p.r.n. 9. Losartan-hydrochlorothiazide 100 mg-25, 1 tablet p.o. daily. 10. Phenergan 25 mg p.o. every 4 hours p.r.n. 11. Protonix 40 mg p.o. daily. 12. Robaxin 50 mg p.o. twice daily. 13. Azithromycin 500 mg p.o. daily, 1 more pill for a total of 3 days. 14. Lomotil 1 p.o. 4 times a day p.r.n. DIET: Renal diet. ACTIVITY: As tolerated. PHYSICIAN FOLLOWUP: Dr. Wilfredo Cornejo, Dr. Toribio Mcfarlane, Dr. Christian Gonzalez, Dr. Simone Barrett. DISCHARGE INSTRUCTIONS: If her condition changes, contact her physician and/or return to the emergency department. Changes may include, but are not limited to, shortness of breath, increased fatigue, excessive bleeding, unexplainable weight loss or gain, No unmanageable pain signs or symptoms of infection. You have been treated by a care provider in the emergency department. These instructions that are given are provided to you so you can have understanding of how to care for yourself upon discharge. You are responsible for making the arrangements for follow-up care by the physicians that were listed. Take all prescribed medications as directed. Return to the emergency department immediately for any new or worsening symptoms. You may call the physician referral phone number at [phone] to obtain a list of physicians who are taking new patients. Dictated by ROSHNI Ryan for Sascha Delgado MD cc: ROSHNI Ryan MD
== END 2019-05-31 16:56 | disposition home or self-care (01) | DRG 371 ==
LOC: P.MEDSURG 19:51 → P.ED 19:51 → SUATTDRO 05-27 08:04 → OBSVTOIN 05-27 08:04 → 1N 05-27 11:43
PROVIDERS: ATTEND Internal Medicine